=== PATIENT | female | born 1970 | race Caucasian/White ===

== ENCOUNTER → 2023-06-12 08:48 | Outpatient (REF) | payer BC, SELFPAY | LOC: WDC 08:48 | PROVIDERS: ATTENDING PHYSICIAN Nurse Practitioner Adult Health | DX: Z12.31 Encounter for screening mammogram for malignant neoplasm of breast (principal) | CPT/HCPCS: 77063; 77067 ==

== ENCOUNTER 2023-10-04 10:10 | Emergency (ER) | payer BC, SELFPAY ==
[2023-10-04 10:14] VITALS: BP 134/89
[2023-10-04] MEDS: DUONEB 3 ML INH (10:43)
--- NOTE | 2023-10-04 11:05 | ED.GENMED ---
History of Present Illness
General
Chief Complaint: Breathing Problem
Source: patient
Time Seen by Provider: 10/04/23 10:25
History of Present Illness
History of Present Illness:
53-year-old female with past medical history of asthma presenting to the emergency department for evaluation of a cough that has been ongoing for 3 weeks, had seen urgent care and her primary care provider who started her on steroid taper, Augmentin
and Tessalon Perles but has not had any relief. Patient notes the last 2 evenings she has had coughing spasms and significant wheezing which is what prompted her to come to the ER today. Patient has 3 days left of her antibiotic and steroid. She
notes that she needed to use her rescue inhaler 3 times last night which is very atypical for her as she normally does not need to use the inhaler at all. Patient denies any known sick contacts other than her daughter who had similar cough about a
month ago but has since recovered. Social history was negative for any tobacco use.
Past History
Past History
ED Past Medical History: Asthma and Other (ACOS)
ED Past Surgical History: and Orthopedic
Social History
Tobacco: Non-smoker
Alcohol: Occasional
Drug: None
Personal:
Living: with family
Employment: Employed
Review of Systems
Review of Systems
All Other Systems: ROS reviewed and negative except as documented in HPI and ROS
Phy Exam
Physical Exam
Physical Exam:
GENERAL: Alert , in no apparent distress, nonproductive cough
EYE: conjunctiva clear
NECK: Supple
ENT: o/p clr, mmm.
CARDIAC: Regular rate and rhythm
LUNGS: Clear breath sounds bilaterally, no acute respiratory distress, no wheezes/rales/rhonchi
NEUROLOGICAL: Alert and oriented
SKIN: Warm and dry, skin intact.
MUSCULOSKELETAL: well perfused. No edema
PSYCH: Normal and appropriate interaction.
Scores
Heart Failure Risk
Heart Failure Risk Score: Not Applicable
Heart Score for Chest Pain Patients
STEMI patient?: Not applicable
Withdrawal Assessment of Alcohol
Withdrawal Assessment Completed?: Not applicable
Course
Orders/Labs/Results
Orders:
Orders
10/04/23 10:39
Ipratropium/Albuterol Sulfate [Duoneb] 3 ml INH R NOW ONE
10/04/23 10:40
CR Chest - 2 Views Urgent
Comment:
Reason For Exam: SOB, cough x 3 weeks, asthma
Vital Signs
Initial and Last Documented VS:
Initial Vital Signs
Temp Pulse Resp BP Pulse Ox
98.9 F 91 20 134/89 97
10/04/23 10:14 10/04/23 10:14 10/04/23 10:14 10/04/23 10:14 10/04/23 10:14
Last Documented Vital Signs
Temp Pulse Resp BP Pulse Ox
98.9 F 73 18 121/86 95
10/04/23 10:14 10/04/23 12:00 10/04/23 12:00 10/04/23 12:00 10/04/23 12:00
MDM/Problems Addressed
Differential Diagnosis Includes:
Asthmatic bronchitis, viral syndrome, pneumonia, PE considered however much less likely lack of risk factors combined with noted wheezing per patient
MDM/Problems Addressed:
53-year-old female presenting the emergency department for evaluation of 3 weeks of cough, now having worsening coughing spells at nighttime associated with wheezing. Needed to use her rescue inhaler 3 times last night and notes that she did get
relief with this inhaler. Presently stating wheezing seems to be resolved for a coughing spasm that she had while here in the ER. Lungs currently clear to auscultation and patient in no acute respiratory distress. Will treat with DuoNeb and
obtain chest x-ray. Patient is already currently taking Augmentin and prednisone. Will consider alternative antitussive medication. Anticipate discharge home
Chronic conditions affecting care: Asthma
Acute Exacerbation and/or Progression of Chronic Illness: Asthma
*Radiology
Radiology exam reviewed: preliminary read by ED provider (normal CXR)
*Pulse Oximetry
Patient hypoxic: no
*Critical Care Note
Total Time (30-74mins, 75-104mins- exclusive of procedures): Not Applicable
Patient Management
Escalation/DeEscalation of care consider admission/obs:
Patient's chest x-ray is unremarkable. She does feel improvement following the nebulizer treatment. Patient was given a nebulizer machine as well as DuoNeb solution to go home with. Prescription for guaifenesin with codeine also provided.
Continue the antibiotic and steroid as prescribed. Aware of return precautions to the ER. Stable for discharge home.
ED Attending Note
-
Portions of this chart may have been created with voice recognition software.� Occasional wrong word or��sound alike� substitutions may have occurred due to the inherent limitations of voice recognition software.
Discharge Plan
Departure
Patient Disposition: Home (Routine Discharge)
Date of Disposition: 10/04/23
Time of Disposition: 12:18
Patient with high blood pressure during this ER visit?: No
Discharge Problem:
Cough
Instructions: Acute Bronchitis, Adult (DC)
Prescriptions:
New
ipratropium-albuterol 0.5 mg-3 mg(2.5 mg base)/3 mL solution for nebulization
3 ml inhalation QID PRN (Reason: shortness of breath or wheezing) Qty: 180 0RF
codeine-guaifenesin 10-100 mg/5 mL liquid
5 ml PO ONCE PRN (Reason: Cough) Qty: 120 0RF
No Action
vit no.[id number] [ Vitamin] 1 EACH tablet
1 mg PO DAILY
metformin 500 MG tablet
500 mg PO DAILY
Referrals:
Ingrid Schulz CRNP [Family Provider] -
Interventions
Interventions:
*Risk Screen - Suicide Last Done: 10/04/23 10:14
*General Assessment Last Done: 10/04/23 10:14
*Neglect/Abuse Screening Last Done: 10/04/23 10:14
ED- Fall Risk Assessment Last Done: 10/04/23 11:21
ED- Cardiac Assessment Last Done: 10/04/23 11:21
ED- Pulmonary Assessment Last Done: 10/04/23 11:21
Discharge Date and Time
Print Language: SLOVAK
[2023-10-04 12:00] VITALS: BP 121/86
== END 2023-10-04 12:33 | disposition home or self-care (01) ==
LOC: EMR 10:10
PROVIDERS: EMERGENCY PHYSICIAN Emergency Medicine; FAMILY PHYSICIAN Nurse Practitioner Adult Health
DX: R05.9 Cough, unspecified (principal); J45.909 Unspecified asthma, uncomplicated; Z79.2 Long term (current) use of antibiotics
CPT/HCPCS: 99283; 94640; 71046

== ENCOUNTER → 2023-10-09 11:56 | Outpatient (REF) | payer BC, SELFPAY | LOC: HWRAD 11:56 | PROVIDERS: ATTENDING PHYSICIAN Nurse Practitioner Adult Health; FAMILY PHYSICIAN Nurse Practitioner Adult Health | DX: R05.1 Acute cough (principal); J45.40 Moderate persistent asthma, uncomplicated | CPT/HCPCS: 71250 ==

== ENCOUNTER → 2023-11-24 09:03 | Outpatient (REF) | payer BC, SELFPAY | LOC: RAD 09:03 | PROVIDERS: ATTENDING PHYSICIAN Internal Medicine; FAMILY PHYSICIAN Nurse Practitioner Adult Health | DX: K21.9 Gastro-esophageal reflux disease without esophagitis (principal) | CPT/HCPCS: 74246 ==

== ENCOUNTER → 2023-12-11 06:15 | Day surgery (SDC) | payer BC, SELFPAY | LOC: GI 06:15 | PROVIDERS: ATTENDING PHYSICIAN Internal Medicine | DX: K22.89 Other specified disease of esophagus (principal); R13.10 Dysphagia, unspecified; R12 Heartburn; K29.50 Unspecified chronic gastritis without bleeding | CPT/HCPCS: 43239; 88305; 88342 ==

== ENCOUNTER → 2024-09-30 15:32 | Outpatient (REF) | payer BC, SELFPAY | LOC: WDC 15:32 | PROVIDERS: ATTENDING PHYSICIAN Nurse Practitioner Adult Health | DX: Z12.31 Encounter for screening mammogram for malignant neoplasm of breast (principal) | CPT/HCPCS: 77063; 77067 ==